=== PATIENT | male | born 1940 | race Caucasian/White ===

== ENCOUNTER 2017-05-02 11:37 | Outpatient (CLI) | payer MEDICARE ==
[~2017-05-02 11:37] MED LIST: CARDURA4 MG PO; DOXYCYCLINE HY100 M2 PO; ELAVIL25 MG PO; HYDRALAZINE HC100 MG PO; HYDRALAZINE HCL25 MG PO; LANTUS INSULIN10 ML SC; LASIX40 MG PO; LOPRESSOR25 MG PO; NORVASC5 MG PO; NOVOLOG100 U/M1 SC; OMEPRAZOLE20 M1 PO; OMNICEF300 MG PO; OS-CAL500 MG PO; PLAVIX75 MG PO; ULTRAM50 MG PO; ZOCOR10 MG PO; ZOLOFT25 MG PO; ZYLOPRIM100 MG PO
[2017-05-02 13:12] VITALS: BP 179/68
--- NOTE | 2017-05-02 15:23 | NUR ---
1415 WAITING FOR BLOOD EXPLAINED S/S OF BLOOD REACTIONS. RT ARM NO REDNESS OR SWELLING. REPOSITIONED IN THE BED.
--- NOTE | 2017-05-02 15:24 | NUR ---
1510 REPOSIONED AFTER CHANGED DIAPER. INCONTINENT OF URINE. REPOSITIONED TO LEFT LATERAL SIDE, BLOOD STARTED BY TAMERA Durant CHECKED BY 2 R.NS. INFUSING VIA RT ARM NO REDNESS OR SWELLING.
--- NOTE | 2017-05-02 15:43 | NUR ---
1543 BLOOD INFUSING NO S/S OF BLOOD REACTIONS. REPORT TO EMILY HARRINGTON.
--- NOTE | 2017-05-02 21:38 | NUR ---
1830 CALLED [facility] CALL TO TYPE COPY EXAMINER PT AT 1999 1900 IV DC WITH CATHER TIP INTACT 2014 [facility] CALLED TO TYPE COPY EXAMINER PT STATED ON THERE WAY 2044 [facility]ED [facility] AGAIN STATED THEY WERE WORKING ON HIM A RIDE 2114 [place] TO TYPE COPY EXAMINER PT 1230 CALLED [facility] TO CALL NH OR GIVE ME A ROOM
== END 2017-05-02 21:53 ==
LOC: D.OPS 11:37
DX: D64.9 Anemia, unspecified (principal)